=== PATIENT | female | born 1965 ===

== ENCOUNTER 2018-01-31 12:10 | Emergency (ER) | payer MEDICAID ==
[~2018-01-31] VITALS: Ht 180.3 cm; Wt 64.3 kg
[2018-01-31 12:13] VITALS: BP 132/96
[2018-01-31] MEDS ORDERED: IBUPROFEN 200 MG TABLET ONE (12:47)
[2018-01-31] MEDS ORDERED: IBUPROFEN 200 MG TABLET PO ONE (13:00)
== END 2018-01-31 13:44 | disposition home or self-care (01) ==
LOC: ED 13:38
DX: M25.561 Pain in right knee (principal); F17.210 Nicotine dependence, cigarettes, uncomplicated
CPT/HCPCS: 99284